=== PATIENT | male | born 1985 | race Two or more races ===

== ENCOUNTER 2022-03-11 11:09 | Emergency (ER) | payer OTHER ==
[~2022-03-11] VITALS: Ht 177.8 cm; Wt 97.5 kg
[2022-03-11] MEDS ORDERED: NAPROXEN500 MG PO (12:56)
[2022-03-11] MEDS ORDERED: ZANAFLEX4 MG PO (12:56)
== END 2022-03-11 14:03 | disposition home or self-care (01) ==
LOC: ER 11:09
DX: M54.59 Other low back pain (principal)

== ENCOUNTER 2022-03-15 07:25 | Emergency (ER) | payer OTHER ==
[~2022-03-15] VITALS: Ht 177.8 cm; Wt 97.5 kg
[~2022-03-15 07:25] MED LIST: NAPROXEN500 MG PO; ZANAFLEX4 MG PO
[2022-03-15] MEDS ORDERED: KETO10TA2 PO (10:56)
[2022-03-15] MEDS ORDERED: NORFLEX100MG PO (10:56)
== END 2022-03-15 11:06 | disposition home or self-care (01) ==
LOC: ER 07:25
DX: M54.50 Low back pain, unspecified (principal)